=== PATIENT | male | born 1990 | race Caucasian/White ===

== ENCOUNTER 2017-06-10 16:19 | Emergency (ER) | payer SELFPAY ==
[2017-06-10] MEDS ORDERED: Sodium Chloride 0.9% 1,000 ML IV ONE (16:39)
[2017-06-10] MEDS ORDERED: Morphine Sulfate 4 mg/mL 1mL Syr IVP ONE (16:41)
--- NOTE | 2017-06-10 16:48 | ED Physician Chart ---
ED Chief Complaint/HPI - Patient Information Date Seen:: 06/10/17 Time Seen:: 16:29 History of Present Illness:: THE PT WAS ASLEEP IN HIS BED WHEN HE AWOKE WITH SEVERE PAIN IN BOTH TESTICLES AT 0530 HRS. THE PT HAS A PAST HISTORY OF SIMILAR PAIN 10 YEARS AGO WHEN HE WAS DIAGNOSED WITH TESTICULAR TORSION. HE UNDERWENT A SURGICAL PROCEDURE AND HAD NO RECURRENCE UNTIL THIS AM. THE PATIENT DENIES ANY TRAUMA TO THE GENITAL REGION. THE PAIN WAS DESCRIBED SHARP AND RATED A 10/10 SEVERITY. THERE WAS RADIATION TO BOTH THE RIGHT AND LEFT SIDES OF THE ABDOMEN. NO RADIATION TO THE BACK. THE PT HAD SEVERE PAIN ACDOMPANIED BY NAUSEA AND FIVE EPISODES OF VOMITING. THE PT DENIED ANY FEVER, CHILLS, DYSURIA, HEMATURIA, OR URINARY FREQUENCY.THE PT WAS OBSERVED BY NURSING PERSONAL APPEARING TO BE IN NO PAIN OR DISCOMFORT PRIOR TO ADMISSION OF MORPHINE, ZOFRAN AND NORMAL SALINE. HE ASKED NURSE KAT HOW DO YOU HANDLE PATIENTS SUSPECTED OF REQUESTING NARCOTICS FOR PAIN. ED Review of Systems - Review of Systems General/Constitutional: No fever, No chills, No weakness, No diaphoresis, No edema Skin: No skin lesions, No bruising Head: No headache, No light-headedness Eyes: No pain, No diplopia Cardio Vascular: No chest pain, No edema Pulmonary: No SOB, No cough, No sputum, No wheezing GI: Nausea, Vomiting, No diarrhea, Pain (ABD PAIN IN THE LOWER ABDOMEN AND IN THE LEFT COSTAL MARGIN.), No melena, No hematemesis G/U: No dysuria, No frequency, No hematuria Musculoskeletal: No muscle pain (PT POINTED TO LT COSTAL MARGIN WHICH ON EXAMINATION WAS VERY TENDER TO LIGHT PRESSURE.) Endocrine: No polyuria, No polydipsia Psychiatric: No prior psych history, No suicidal ideation Neurological: No syncope, No weakness, No headache, No seizure, No confusion, No vertigo ED Past Medical History - Past Medical History Past Medical History: Other (PT STATES THAT ABOUT 10 YEARS AGO HE WAS DIAGNOSED WITH TORSION AND HAD UNDERGONE AN UNKNOWN SURGICAL INTERVENTION.) Family Medical History - Family Member Father Ethnicity: Non- Living Status: Hx Family Cancer: Yes Hx Family Coronary Artery Disease: Yes ED Physical Exam - Physical Examination General/Constitutional: Well-developed, well-nourished, Alert, Non-toxic appearing, Ambulatory Other Gen/Cons comments:: The Patient appeared to be in moderate to severe distress from his complained of testicular and lower abdominal pain. Head: Atraumatic Eyes: Lids, conjuctiva normal, PERRL, EOMI Skin: Nl inspection, No skin lesions, No ecchymosis, No lymphadenopathy Other Skin comments:: Warm and dry to the touch. ENMT: External ears, nose nl, Nasal exam nl, Lips, teeth, gums nl, Oropharynx nl , Tonsils nl Neck: Nontender, Full ROM w/o pain, No JVD, No nuchal rigidity, No mass, No stridor Respiratory: Nl effort/Exclusion, Clear to Auscultation, No Wheeze/Rhonchi/Rales Other Respiratory comments:: The patient had severe point tenderness along the left costal margin slightly lateral to the midline. There was no crepitus in the region and no swelling or masses. The abdomen below the costal margin was mildly tender to palpation and there was no splenomegaly or hepatomegaly. No abdominal masses and no inguinal hernias present. Following administration of morphine the inguinal canals were examined and free of masses or hernias. Cardio Vascular: RRR, No murmur, gallop, rubs Other Cardio Vascular comments:: Normal peripheral pulses in all four extremities. GI: Normal BS's, Nondistended, No mass/bruits ( There was diffuse tenderness throughout the abdomen with no localization of tenderness. No masses were palpated and no hernias were present. On initial examination there was more tenderness to palpation over the scrotum which did not localize to either the right or the left. Normal cream hysteric exam. No abnormal lie of the testicles. No testicular masses present.) : No CVA tenderness, No discharge Extremities: No tenderness or effusion, Full ROM, normal strength in all extremities, No edema, Normal digits & nails Neuro/Psych: Alert/oriented, Normal sensory exam, Normal motor strength, No focal deficits Misc: Normal back, No paraspinal tenderness Other Misc comments:: No spinal tenderness in the cervical, thoracic or lumbar regions. ED Labs/Radiology/EKG Results - Lab Results Results: Laboratory Tests 06/10/17 06/10/17 06/10/17 16:51 16:51 17:00 WBC 9.1 RBC 4.77 Hgb 15.5 Hct 45.3 MCV 95.0 MCH 32.5 H MCHC Differential 34.2 RDW 12.5 Plt Count 278 MPV 7.2 Neutrophils (Manual) 87 H Lymphocytes 10 L Monocytes 3 Platelet Estimate ADEQUATE Sodium 136 Potassium 3.7 Chloride 103 Carbon Dioxide 19.1 L Anion Gap 17.6 H BUN 23 Creatinine 0.9 Est GFR ( Amer) > 60.0 Est GFR (Non-Af Amer) > 60.0 BUN/Creatinine Ratio 25.6 Glucose 99 Calcium 10.3 Total Bilirubin 1.1 H AST 17 ALT 11 Alkaline Phosphatase 55 Total Protein 8.4 H Albumin 5.3 Globulin 3.1 Albumin/Globulin Ratio 1.7 Urine Source RANDOM Urine Color POIL Urine Clarity SLIGHTLY HAZY Urine pH 6.0 Ur Specific [place] >= 1.030 Urine Protein 30 H Urine Glucose (UA) NEGATIVE Urine Ketones 40 H Urine Blood TRACE Urine Nitrate NEGATIVE Urine Bilirubin NEGATIVE Urine Urobilinogen 0.2 Ur Leukocyte Esterase NEGATIVE Urine RBC 2-5 H Urine WBC 0-2 Ur Epithelial Cells OCCASIONAL Amorphous Sediment FEW URATES Urine Bacteria FEW Urine Mucus MODERATE Urine Opiates Screen Urine Methadone Screen Ur Barbiturates Screen Ur Tricyclics Screen Ur Phencyclidine Scrn Amphetamines Screen U Methamphetamines Scrn U Benzodiazepines Scrn U Cocaine Metab Screen U Cannabinoids Screen 06/10/17 17:00 WBC RBC Hgb Hct MCV MCH MCHC Differential RDW Plt Count MPV Neutrophils (Manual) Lymphocytes Monocytes Platelet Estimate Sodium Potassium Chloride Carbon Dioxide Anion Gap BUN Creatinine Est GFR ( Amer) Est GFR (Non-Af Amer) BUN/Creatinine Ratio Glucose Calcium Total Bilirubin AST ALT Alkaline Phosphatase Total Protein Albumin Globulin Albumin/Globulin Ratio Urine Source Urine Color Urine Clarity Urine pH Ur Specific [place] Urine Protein Urine Glucose (UA) Urine Ketones Urine Blood Urine Nitrate Urine Bilirubin Urine Urobilinogen Ur Leukocyte Esterase Urine RBC Urine WBC Ur Epithelial Cells Amorphous Sediment Urine Bacteria Urine Mucus Urine Opiates Screen NEGATIVE Urine Methadone Screen NEGATIVE Ur Barbiturates Screen NEGATIVE Ur Tricyclics Screen NEGATIVE Ur Phencyclidine Scrn NEGATIVE Amphetamines Screen NEGATIVE U Methamphetamines Scrn NEGATIVE U Benzodiazepines Scrn NEGATIVE U Cocaine Metab Screen NEGATIVE U Cannabinoids Screen POSITIVE H LAB INTERPRETATION: CBC unremarkable with no leukocytosis, anemia or indication of platelet abnormality. METABOLIC RESULTS: electrolytes all within normal parameters. Electrolytes all within nURINALYSISmeters. NORMAL RENAL FUNCTION. AST, ALT, alkaline phosphatase, ALL WITHIN NORMAL PARAMETERS. Mild elevation of the total bilirubin content. URINALYSIS was negative for evidence of UTI. Urine toxicology screen was negative except for the positive marijuana SCAN TESTICULAR ULTRA SOUND SCAN: SHOWED NORMAL ARTERIAL BLOOD FLOW. BOTH TESTICALS WITH SMALL AREAS OF SCARING CONSISTANT WITH PRIOR HX OF SURGICAL INTERVENTION. ED Assessment - Assessment General Assessment: CASE SUMMARY: this 26-year-old male presents with onset of scrotal pain that started at 430 this a.m. Patient has a prior history of testicular torsion with prior surgical intervention. On physical exam the patient appeared to be in severe distress secondary to lower abdominal and genital pain. My initial impression was the patient had testicular torsion and an attempt was made to de -torse the testicles was unsuccessful due to the patient's severe pain. The pain and nausea was addressed with IV normal saline, IV Zofran and IV morphine. The patient had significant relief of symptoms. Laboratory studies were within normal parameters. An ultrasound of the scrotum showed good blood flow to both testicles. It also showed small areas which appear to be scars. As the patient's symptoms were markedly improved and the ultrasound showing good blood flow, the patient was discharged with a recommendation for urologic follow-up and reevaluation this coming week. The patient was further advised to return to the emergency department if he experiences any recurrence of severe testicular pain. The patient was advised to use ibuprofen or Naprosyn for mild to moderate discomfort. The patient was given a prescription for six [place], 5/ 325 MG to be taken as needed for residual pain. He was given the usual precautions regarding mixing it with alcohol, driving, and activities requiring alertness or coordination. The patient was discharged in stable condition. MDM: DDX TESTICULAR PAIN: NOT Traumatic hematoma to the patient's history of no testicular injury. NO UTI Based on the urinalysis results. NOT Acute appendicitis based on the patient's history and physical examination showing no localization of tenderness in the abdomen. NOT Inguinal incarcerated hernia based on physical examination. ED Septic Shock - . Is Septic Shock (SBP<90, OR Lactate>4 mmol\L) present?: No ED Reassessment (Disposition) - Reassessment Reassessment Condition:: Improved - Diagnosis Diagnosis:: ACUTE TESTICULAR PAIN (Possible TESTICULAR TORSION, Spontaneous resolution) Suspicious for Drug-seeking behavior.) History Of prior testicular torsion. The patient is employed by [employer] and will have medical insurance as of this coming week. He was advised to contact the referral for a primary care physician and was then advised to request a consult from a urologist. He was further advised to return to the emergency department for any return of the severe testicular pain he was experiencing at the time of initial evaluation. He was given a prescription for six [place] 5/325 with the usual precautions against mixing it with alcohol and not taking it within six hours of driving her activities requiring alertness. ED Discharge Plan - Patient Disposition Admit/Discharge/Transfer: PT DISCHARGED HOME Condition at Disposition: Improved Instructions: Testicular Torsion
[2017-06-10 16:57] LABS: BASOPHILE ABSOLUTE 0.1 Th/cumm (0-0.2); HEMATOCRIT 45.3 % (41.0-60); HEMOGLOBIN 15.5 gm/dL (12-16); LYMPHOCYTE ABSOLUTE 0.6 Th/cmm (1.5-3.0); MEAN CORPUSCULAR HEMOGLOBIN 32.5 pg (26.0-30.0); MEAN CORPUSCULAR HGB CONC 34.2 pg (28.0-36.0); MEAN PLATELET VOLUME 7.2 fl; MONOCYTE ABSOLUTE 0.1 Th/cmm (0.3-1.0); NEUTROPHILE ABSOLUTE 8.3 Th/cmm (1.8-8.0); PLATELET COUNT 278 Th/cmm (150-400); RED BLOOD COUNT 4.77 Mil/cmm (4.30-5.70); RED CELL DISTRIBUTION WIDTH 12.5 % (11.5-20.0); WHITE BLOOD COUNT 9.1 Th/cmm (4.8-10.8)
[2017-06-10 17:08] LABS: URINE MICROSCOPIC INDICATED? YES; URINE SOURCE RANDOM
[2017-06-10 17:12] LABS: ALB/GLOB RATIO 1.7 (1.0-1.8); ALBUMIN 5.3 gm/dL (4.2-5.5); ALKALINE PHOSPHATASE 55 U/L (34-104); ANION GAP 17.6 (7.0-16.0); BILIRUBIN,TOTAL 1.1 mg/dL (0.3-1.0); BUN - UREA NITROGEN 23 mg/dL (7-25); CALCIUM SERUM 10.3 mg/dL (8.6-10.3); CARBON DIOXIDE 19.1 mEq/L (21.0-31.0); CHLORIDE 103 mEq/L (98-107); CREATININE - SERUM 0.9 mg/dL (0.7-1.3); GFR AFRICAN-AMERICAN > 60.0 ml/min (>90); GFR NON AFRICAN-AMERICAN > 60.0 ml/min; GLUCOSE 99 mg/dL (70-105); POTASSIUM SERUM 3.7 mEq/L (3.5-5.1); SGOT 17 U/L (13-39); SGPT/ALT 11 U/L (7-52); SODIUM SERUM 136 mEq/L (136-145); TOTAL PROTEIN,SERUM 8.4 gm/dL (6.0-8.3)
[2017-06-10 17:16] LABS: URINE BILIRUBIN NEGATIVE (NEGATIVE); URINE BLOOD TRACE (NEGATIVE); URINE GLUCOSE (UA) NEGATIVE (NEGATIVE); URINE KETONE 40 mg/dL (NEGATIVE); URINE LEUKOCYTE ESTERASE NEGATIVE (NEGATIVE); URINE NITRATE NEGATIVE (NEGATIVE); URINE PROTEIN 30 mg/dL (NEGATIVE); URINE UROBILINOGEN 0.2 E.U./dL (0.2 - 1.0)
[2017-06-10 17:20] LABS: URINE AMORPHOUS SEDIMENT FEW URATES (NONE SEEN); URINE BACTERIA FEW /hpf (NONE SEEN); URINE CLARITY SLIGHTLY HAZY (CLEAR); URINE COLOR AMBER; URINE EPITHELIAL CELLS OCCASIONAL /lpf (FEW); URINE WBC 0-2 /hpf (0-5)
[2017-06-10 17:24] LABS: LYMPHOCYTE 10 % (20-50); MONOCYTE 3 % (2-10); NEUTROPHILS 87 % (40-80); PLATELET ESTIMATE ADEQUATE (NORMAL)
[2017-06-10 17:52] LABS: AMPHETAMINE URINE NEGATIVE (NEGATIVE); BARBITURATES URINE NEGATIVE (NEGATIVE); BENZODIAZEPINES QUAL URINE NEGATIVE (NEGATIVE); CANNABINOID THC POSITIVE (NEGATIVE); COCAINE METABOLITE QUAL URINE NEGATIVE (NEGATIVE); METHADONE URINE NEGATIVE (NEGATIVE); METHAMPHETAMINES QUAL URINE NEGATIVE (NEGATIVE); OPIATES (MORPHINE) QUAL. URINE NEGATIVE (NEGATIVE); PHENCYCLIDINE (PCP) URINE NEGATIVE (NEGATIVE); TRICYCLICS (TCA) QUAL. URINE NEGATIVE (NEGATIVE)
--- NOTE | 2017-06-11 08:50 | Diagnostic Imaging Report ---
Testicular/scrotal ultrasound HISTORY: Pain The exam is limited due to difficulty in patient cooperation associated with continuous movement related to reported pain. The right testis measures 4.0 x 1.3 0.3 cm. No focal parenchymal lesions. Normal testicular vascular flow. 2 sonolucent lesions are seen within the head of the right epididymis measuring 2 mm and 3 mm. Findings are consistent with cysts. No hydrocele or varicocele on the right side. The left testis measures 4.4 x 2.4 x 3.2 cm. An approximate 1.0 x 0.6 cm echogenic density is noted in the periphery of the left testis. Finding of doubtful significance. Normal testicular vascular flow. An approximate 7 mm hyperechoic focus noted in the head of the left epididymis. Findings most likely associated with a chronic etiology. No hydrocele or varicocele seen. IMPRESSION: 1. Normal testicular vascular flow 2. Subcentimeter echogenic density within the periphery of the left testis. The finding is of doubtful significance. 3. Findings consistent with right epididymal cysts 4. Subcentimeter echogenic density within the head of the left epididymis probably associated with a chronic etiology.
--- NOTE | 2017-06-11 12:25 | Diagnostic Imaging Report ---
Left lower extremity Doppler arterial ultrasound exam HISTORY: Pain Sonographic sector images were obtained through the arterial system of the left leg. Associated Doppler data was obtained. The exam demonstrates triphasic waveforms within the common femoral, superficial femoral, popliteal, anterior tibial, posterior tibial, and dorsalis pedis arteries. Normal velocities. No significant focal atherosclerotic plaque is sonographically identified. Patient refused evaluation and pressure measurements to determine the ankle/brachial index. IMPRESSION: 1. No definite evidence of hemodynamically significant atherosclerotic vascular disease.
== END 2017-06-10 19:29 | disposition home or self-care (01) ==
LOC: ER 16:19
DX: N50.819 Testicular pain, unspecified (principal)
CPT/HCPCS: 99285; 96374; 96375; 93926; 76870; 36415; 80307; 85007; 85027; 81001; 80053; J2405; J2270; J7030

== ENCOUNTER 2017-06-12 21:28 | Emergency (ER) | payer SELFPAY ==
[2017-06-12 22:55] LABS: % BASOPHILS 0.7 % (0.0-2.0); % EOSINOPHILS 0.3 % (0.0-5.0); % LYMPHOCYTES 14.2 % (20.0-50.0); % MONOCYTES 3.9 % (2.0-10.0); % NEUTROPHILS 80.9 % (40.0-80.0); BASOPHILE ABSOLUTE 0.1 Th/cumm (0-0.2); HEMATOCRIT 44.3 % (41.0-60); HEMOGLOBIN 14.8 gm/dL (12-16); LYMPHOCYTE ABSOLUTE 1.1 Th/cmm (1.5-3.0); MEAN CELL VOLUME 96.5 fl (80-99); MEAN CORPUSCULAR HEMOGLOBIN 32.2 pg (26.0-30.0); MEAN CORPUSCULAR HGB CONC 33.4 pg (28.0-36.0); MEAN PLATELET VOLUME 7.4 fl; MONOCYTE ABSOLUTE 0.3 Th/cmm (0.3-1.0); NEUTROPHILE ABSOLUTE 6.5 Th/cmm (1.8-8.0); PLATELET COUNT 275 Th/cmm (150-400); RED CELL DISTRIBUTION WIDTH 12.3 % (11.5-20.0)
[2017-06-12 23:12] LABS: ALB/GLOB RATIO 1.8 (1.0-1.8); ALBUMIN 4.8 gm/dL (4.2-5.5); ALKALINE PHOSPHATASE 48 U/L (34-104); AMYLASE SERUM 41 U/L (29-103); ANION GAP 11.4 (7.0-16.0); BILIRUBIN,TOTAL 0.7 mg/dL (0.3-1.0); BUN - UREA NITROGEN 23 mg/dL (7-25); CARBON DIOXIDE 29.7 mEq/L (21.0-31.0); CHLORIDE 101 mEq/L (98-107); CREATININE - SERUM 0.9 mg/dL (0.7-1.3); GFR AFRICAN-AMERICAN > 60.0 ml/min (>90); GFR NON AFRICAN-AMERICAN > 60.0 ml/min; GLUCOSE 118 mg/dL (70-105); LIPASE 12 U/L (11-82); POTASSIUM SERUM 3.1 mEq/L (3.5-5.1); SGOT 14 U/L (13-39); SGPT/ALT 11 U/L (7-52); SODIUM SERUM 139 mEq/L (136-145); TOTAL PROTEIN,SERUM 7.5 gm/dL (6.0-8.3)
[2017-06-12 23:47] LABS: URINE MICROSCOPIC INDICATED? YES; URINE SOURCE RANDOM
[2017-06-12 23:50] LABS: URINE BILIRUBIN MODERATE (NEGATIVE); URINE BLOOD NEGATIVE (NEGATIVE); URINE GLUCOSE (UA) NEGATIVE (NEGATIVE); URINE KETONE 15 mg/dL (NEGATIVE); URINE LEUKOCYTE ESTERASE NEGATIVE (NEGATIVE); URINE NITRATE NEGATIVE (NEGATIVE); URINE PROTEIN TRACE mg/dL (NEGATIVE); URINE UROBILINOGEN 0.2 E.U./dL (0.2 - 1.0)
[2017-06-12 23:55] LABS: URINE CLARITY HAZY (CLEAR); URINE COLOR ORANGE
[2017-06-12 23:56] LABS: URINE ICTOTEST NEGATIVE (NEGATIVE)
[2017-06-12 23:57] LABS: URINE BACTERIA OCCASIONAL /hpf (NONE SEEN); URINE EPITHELIAL CELLS NONE SEEN /lpf (FEW); URINE RBC 0-2 /hpf (0-5); URINE WBC 0-2 /hpf (0-5)
--- NOTE | 2017-06-13 00:07 | ED Physician Chart ---
ED Chief Complaint/HPI - Patient Information Date Seen:: 06/13/17 Time Seen:: 22:10 Chief Complaint:: abdominal pain History of Present Illness:: location: abdomen quality: sharp pain severity: mild,mod duration: several days context: pt says he came to ER 3 days ago for abdominal pain at left upper quadrant and left lower quadrant radiating to the left flank. pt says that the pain is intense, radiates as described, and has not taken anything for the pain. pt reports that he has continued to eat regular food. has had one episode of vomiting earlier in the day today. no diarrhea. last bowel movement earlier today, soft brown stool, no blood. pt says he went to his primary care physician who advised him to come to the ER for physician examination. no fever, no chest pain, no SOB. mod factors: none assoc s/s; none hx from pt. Allergies:: Allergies Allergy/AdvReac Type Severity Reaction Status Date / Time No Known Allergies Allergy Verified 06/12/17 22:33 Vitals:: Vital Signs - 8 hr 06/12/17 22:00 Temp 97.7 F HR 60 RR 18 BP 135/86 O2 Sat % 100 Historian:: Patient Review:: Nurse's Note Reviewed ED Review of Systems - Review of Systems General/Constitutional: No fever, No chills, No weight loss, No weakness, No diaphoresis, No edema, No loss of appetite Skin: No skin lesions, No rash, No bruising Head: No headache, No light-headedness Eyes: No loss of vision, No pain, No diplopia ENT: No earache, No nasal drainage, No sore throat, No tinnitus Neck: No neck pain, No swelling, No thyromegaly, No stiffness, No mass noted Cardio Vascular: No chest pain, No palpitations, No PND, No orthopnea, No edema Pulmonary: No SOB, No cough, No sputum, No wheezing GI: No nausea, No vomiting, No diarrhea, Pain, No melena, No hematochezia, No constipation, No hematemesis G/U: No dysuria, No frequency, No hematuria Musculoskeletal: No bone or joint pain, No back pain, No muscle pain Endocrine: No polyuria, No polydipsia Psychiatric: No prior psych history, No depression, No anxiety, No suicidal ideation Hematopoietic: No bruising, No lymphadenopathy Allergic/Immuno: No urticaria, No angioedema Neurological: No syncope, No focal symptoms, No weakness, No paresthesia, No headache, No seizure, No dizziness, No confusion, No vertigo ED Past Medical History - Past Medical History Past Medical History: No significant medical hx Family History: None Social History: Smoker, Alcohol, Illicit Drug Use, Single Surgical History: None Psychiatricy History: None Medication: None Family Medical History - Family Member Father Ethnicity: Non- Living Status: Hx Family Cancer: Yes Hx Family Coronary Artery Disease: Yes Hx Family Diabetes: Yes Other Medical History: myocardial infarction ED Physical Exam - Physical Examination General/Constitutional: Awake, Well-developed, well-nourished, Alert, No distress, GCS 15, Non-toxic appearing, Ambulatory Head: Atraumatic Eyes: Lids, conjuctiva normal, PERRL, EOMI Skin: Nl inspection, No rash, No skin lesions, No ecchymosis, Well hydrated, No lymphadenopathy ENMT: External ears, nose nl, Nasal exam nl, Lips, teeth, gums nl Neck: Nontender, Full ROM w/o pain, No nuchal rigidity, No stridor Respiratory: Nl effort/Exclusion, Clear to Auscultation, No Wheeze/Rhonchi/Rales Cardio Vascular: RRR, No murmur, gallop, rubs, NL S1 S2 GI: No tenderness/rebounding/guarding, Normal BS's, No mass/bruits, No McBurney tenderness : No CVA tenderness Extremities: No tenderness or effusion, Full ROM, normal strength in all extremities, No edema, Normal digits & nails Neuro/Psych: Alert/oriented, Normal sensory exam, Normal motor strength, Judgement/insight normal, Mood normal, Normal gait, No focal deficits Misc: Normal back, No paraspinal tenderness ED Labs/Radiology/EKG Results - Lab Results Results: Laboratory Tests 06/12/17 06/12/17 06/12/17 22:47 22:47 23:23 WBC 8.0 RBC 4.60 Hgb 14.8 Hct 44.3 MCV 96.5 MCH 32.2 H MCHC Differential 33.4 RDW 12.3 Plt Count 275 MPV 7.4 Neutrophils % 80.9 H Lymphocytes % 14.2 L Monocytes % 3.9 Eosinophils % 0.3 Basophils % 0.7 Sodium 139 Potassium 3.1 L Chloride 101 Carbon Dioxide 29.7 Anion Gap 11.4 BUN 23 Creatinine 0.9 Est GFR ( Amer) > 60.0 Est GFR (Non-Af Amer) > 60.0 BUN/Creatinine Ratio 25.6 Glucose 118 H Calcium 10.0 Total Bilirubin 0.7 AST 14 ALT 11 Alkaline Phosphatase 48 Total Protein 7.5 Albumin 4.8 Globulin 2.7 Albumin/Globulin Ratio 1.8 Amylase 41 Lipase 12 Urine Source RANDOM Urine Color ORANGE Urine Clarity HAZY Urine pH 7.0 Ur Specific [place] >= 1.030 Urine Protein TRACE Urine Glucose (UA) NEGATIVE Urine Ketones 15 H Urine Blood NEGATIVE Urine Nitrate NEGATIVE Urine Bilirubin MODERATE H Urine Ictotest NEGATIVE Urine Urobilinogen 0.2 Ur Leukocyte Esterase NEGATIVE Urine RBC 0-2 H Urine WBC 0-2 Ur Epithelial Cells NONE SEEN Calcium Oxalate Crystal FEW Urine Bacteria OCCASIONAL ED Assessment - Assessment General Assessment: pt in stable condition during ER stay. ED Septic Shock - . Is Septic Shock (SBP<90, OR Lactate>4 mmol\L) present?: No - <6hrs of presentation: Vital Signs: Vital Signs - 8 hr 06/12/17 22:00 Temp 97.7 F HR 60 RR 18 BP 135/86 O2 Sat % 100 ED Reassessment (Disposition) - Reassessment Reassessment:: pt in stable condition while in ER. Reassessment Condition:: Improved - Diagnosis Diagnosis:: abdominal pain, improved. - Aftercare/Follow up Instructions Aftercare/Follow-Up Instructions:: Refer to Discharge Instructions Notes:: pt reports improvement of abdominal pain spontaneously when told that he would not be immediately receiving high dose narcotic medications. lab review show no acute life threatening abnormalities. pt in stable condition while in ER, pt appears to be in no acute distress. pt appears comfortable on gurney. - Patient Disposition Discharge/Transfer:: Home Condition at Disposition:: Stable, Improved
[2017-06-13 00:20] LABS: AMPHETAMINE URINE NEGATIVE (NEGATIVE); BARBITURATES URINE NEGATIVE (NEGATIVE); BENZODIAZEPINES QUAL URINE NEGATIVE (NEGATIVE); CANNABINOID THC POSITIVE (NEGATIVE); COCAINE METABOLITE QUAL URINE NEGATIVE (NEGATIVE); METHADONE URINE NEGATIVE (NEGATIVE); METHAMPHETAMINES QUAL URINE NEGATIVE (NEGATIVE); OPIATES (MORPHINE) QUAL. URINE NEGATIVE (NEGATIVE); PHENCYCLIDINE (PCP) URINE NEGATIVE (NEGATIVE); TRICYCLICS (TCA) QUAL. URINE NEGATIVE (NEGATIVE)
== END 2017-06-13 00:05 | disposition left against medical advice (07) ==
LOC: ER 21:28
DX: R10.9 Unspecified abdominal pain (principal); F17.200 Nicotine dependence, unspecified, uncomplicated
CPT/HCPCS: 36415-UA; 80053-TC; 80307; 81001-TC; 82150-TC; 83690-TC; 85025-TC; Z7502

== ENCOUNTER 2017-07-07 22:25 | Emergency (ER) | payer SELFPAY ==
[2017-07-07] MEDS ORDERED: Acetaminophen 500 MG TAB PO ONE (22:56)
[2017-07-07] MEDS ORDERED: Sodium Chloride 0.9% 500 ML IV ONE (23:01)
[2017-07-07] MEDS ORDERED: Acetaminophen 500 MG TAB ONE (23:55)
[2017-07-08 00:32] LABS: % BASOPHILS 0.3 % (0.0-2.0); % EOSINOPHILS 0.3 % (0.0-5.0); % LYMPHOCYTES 7.6 % (20.0-50.0); % MONOCYTES 2.5 % (2.0-10.0); % NEUTROPHILS 89.3 % (40.0-80.0); HEMOGLOBIN 14.8 gm/dL (12-16); LYMPHOCYTE ABSOLUTE 0.8 Th/cmm (1.5-3.0); MEAN CELL VOLUME 95.2 fl (80-99); MEAN CORPUSCULAR HEMOGLOBIN 33.6 pg (26.0-30.0); MEAN CORPUSCULAR HGB CONC 35.3 pg (28.0-36.0); MEAN PLATELET VOLUME 8.1 fl; MONOCYTE ABSOLUTE 0.3 Th/cmm (0.3-1.0); NEUTROPHILE ABSOLUTE 9.3 Th/cmm (1.8-8.0); PLATELET COUNT 243 Th/cmm (150-400); RED BLOOD COUNT 4.41 Mil/cmm (4.30-5.70); RED CELL DISTRIBUTION WIDTH 12.9 % (11.5-20.0); WHITE BLOOD COUNT 10.4 Th/cmm (4.8-10.8)
--- NOTE | 2017-07-08 17:30 | ER Physician Documentation ---
DATE OF SERVICE: HISTORY OF PRESENT ILLNESS: A 26-year-old male patient came to the hospital on 07/07/2017 saying that he works at one of the [employer] system either it is [employer] or [employer] and the patient while punching out, fell down and hurt his back and he wants a shot to be given to him, one shot. He does not want Toradol IV. He does not want Toradol IM. I gave him some Toradol with things. He does not want any noninflammatory drug. He just found the drugs to be given to him and that is not the pain that he is refusing to take it. He is refusing the doctor's treatment. He also complains of left arm numbness, left leg numbness, back pain, testicular pain, any pain and every pain that is possible. We remembers seeing him in the past. He is telling me to give him something to relax him and other things and this is not for what we are here in the Emergency Room, needs to relax people, give the people narcotics at their desire. Somebody needs genuinely will get it. The patient has come here in the past, again maybe a month or two ago going for probably other places. He takes marijuana. He says once on the weekends only one gram causing at least 15 dollars. He says he does not smoke anything else. He does not take any other drugs, but drug screen test has been ordered. We will check it out. History of present illness essentially same as outlined above. REVIEW OF SYSTEMS: Twelve lead review of systems essentially is found to be within normal limits. EYES: No history of double vision, blurring, blindness. PULMONARY: No history of pneumonia, TB, pulmonary embolism, COPD, emphysema, or bronchitis. BONES AND JOINTS: Has aches and pains. No diabetes mellitus. No other complaint. He says he works, I am not sure whether he is working. He is saying he has 10/10 pain. He wants one shot at least to be given to him so he relax. HEART: He has no chest pain, no myocardial infarction, no rheumatic fever. PULMONARY: No history of pneumonia, TB, pulmonary embolism, COPD, emphysema, bronchitis. BONES AND JOINTS: He complains of the pain. GASTROINTESTINAL: No diarrhea, no constipation, no vomiting. A 12-lead review of systems essentially is negative. PERSONAL HISTORY: He said he was before. No children. He is 26-year-old, works for [employer] or so. VITAL SIGNS: Temperature 98, pulse of 54, respirations 18, blood pressure 119/66, oxygen saturation 100%. Height of 6 feet 2 inches, weight of 190 pounds. ALLERGIES: Latex. Pain is 10 out of 10, location back. Code: Full code. Ambulatory; he is walking. He has a history of appendicectomy on the right side. FAMILY HISTORY: Father has cancer, diabetes mellitus and hypertension. Mother has diabetes and hypertension. PHYSICAL EXAMINATION: GENERAL: The patient appears to be awake, alert, oriented. Tries to her pain in various sides of his body. It shifts from the back to the front, to the arm to the leg, to the testes to getting a shot, so he can go. He does not want any nonsteroidal anti-inflammatory medications. CHEST: Clear. Trachea being central. Fairly good air entry in both lungs without any rales, rhonchi, or bronchial breathing. ABDOMEN: Soft, benign and negative. Central nervous system is normal. Abdomen is soft, benign and negative. Liver, spleen not enlarged. No free fluid in the abdomen. HEART: Reveals normal heart sounds. No fourth heart sound. Second heart sound is physiologically split. Third heart sound is absent. CLINICAL IMPRESSION: The patient seems to be a drug seeker, whether he fell down or not positive because he could walk very freely. He went out of the department against medical advice without any problem. He has just slight ache and pain in the lower lumbar area where I touched him. Any other place where I touched him where he has pain. He has a history of marijuana use. Drug screen test was ordered. I do not think he is allowed any drug to be given. He has a history of appendicectomy. The patient is signing against medical advice. FINAL DIAGNOSIS: 1. Drug seeker in all probability. 2. History of fall, whether it is true or not I am not sure. 3. History of appendicectomy. JOB# [id number]
== END 2017-07-08 00:02 | disposition left against medical advice (07) ==
LOC: ER 22:25
DX: M54.5 Low back pain (principal); Z91.81 History of falling; Z90.89 Acquired absence of other organs
CPT/HCPCS: 36415-UA; 80053-TC; 83690-TC; 85007-TC; 85025-TC; 85027-TC; J1885; Z7502; Z7610